=== PATIENT | female | born 1960 | race Caucasian/White ===

== ENCOUNTER 2017-10-22 07:59 | Day surgery (SDC) | payer BC ==
[2017-10-18 09:27] VITALS: BMI 28.9
[~2017-10-22 07:59] MED LIST: LACTATED RINGERS 1,000 ML IV SCH; LIDOCAINE 1% 20 ML VIAL (10MG/ML) FOR IV START INTRADERMA PRN
[2017-10-22 08:22] VITALS: RESP 16; TEMP 98.5
[2017-10-22] MEDS ORDERED: PROPOFOL 10 MG/ML 20 ML VIAL IV ONE (09:10)
--- NOTE | 2017-10-22 09:46 | P.PCN ---
Date of Procedure: 10/22/17 Procedure(s) Performed: Procedure: Colonoscopy and biopsy. Preoperative diagnosis: Change in bowel habits. Postoperative diagnosis: 1. Mild diverticulosis with no evidence of acute diverticulitis, strictures, polyps or cancer. 2. Biopsies obtained from the terminal ileum and random colon. Preparation: HalfLytely prep. Sedation: Was provided by anesthesia. Brief clinical history: The patient is a 57-year-old female who is scheduled for this evaluation because of issues with postprandial diarrheic BM for the last 6 months or so. The patient had a colonoscopy around 3 years ago and had polyps removed. No bleeding or other alarm symptoms. Procedure: With the patient on her left lateral decubitus position and after informed consent and adequate sedation, the perianal area was inspected and it did not show any fissures or fistulas. There were no masses felt on digital rectal examination. The Olympus CFQ 160L video colonoscope was then inserted in the rectum in the usual fashion and advanced to the cecum. I intubated the ileocecal valve and examined the terminal ileum. Terminal ileum and colon appeared healthy with no edema, erythema, friability, ulceration, exudation or spontaneous bleeding. No polyps or tumors were seen. There was occasional diverticular orifice seen with no evidence of acute diverticulitis or strictures. I retroflexed the endoscope in the rectum before the endoscope was withdrawn and I also obtained biopsy from the terminal ileum and randomly from the colon. The patient tolerated the procedure well. Plan: The patient was reassured. Discussed possible that dietary intolerances could be playing a role in her symptoms. The possibility of irritable bowel syndrome to be kept in mind. Will await pathology results. She will follow-up with you as planned and I recommended repeat exam in 5 years.
[2017-10-22 10:10] VITALS: BP 162/94; PULSE 60
== END 2017-10-22 10:28 | disposition home or self-care (01) ==
LOC: ORWHC2ENDO 07:59
DX: K57.30 Diverticulosis of large intestine without perforation or abscess without bleeding (principal); Z86.010 Personal history of colon polyps; J45.909 Unspecified asthma, uncomplicated; I10 Essential (primary) hypertension; Z85.3 Personal history of malignant neoplasm of breast; Z79.51 Long term (current) use of inhaled steroids; Z79.899 Other long term (current) drug therapy
CPT/HCPCS: 88305; 45380; J2704

== ENCOUNTER 2018-06-23 07:54 | Emergency (ER) | payer BC ==
[2018-06-23 08:01] VITALS: RESP 18; TEMP 98
[2018-06-23] MEDS ORDERED: ONDANSETRON 4 MG/2 ML VIAL IVP STA (08:17)
[2018-06-23] MEDS ORDERED: MECLIZINE 25 MG TAB PO STA (08:17)
[2018-06-23] MEDS ORDERED: DIAZEPAM 5 MG/ML 2 ML INJ IVP STA (08:17)
[2018-06-23] MEDS ORDERED: ASPIRIN-ACET-CAFF 250-250-65MG 1 EACH TAB PO STA (08:21)
--- NOTE | 2018-06-23 08:27 | ED ---
General Adult HPI - General Chief complaint: Dizziness Stated complaint: dizzy, SOB Time Seen by Provider: 06/23/18 08:00 Source: patient, RN notes reviewed Mode of arrival: wheelchair Limitations: no limitations - History of Present Illness Initial comments: This is a 58-year-old female who presents emergency Department complaining of dizziness. Patient states she had this about 3 weeks ago. Patient states she was treated for sinus infection and it seemed to go away. Patient states she was in bed today when she rolled OUT of bed the whole room started spinning and moving. Patient states that when she moves her head the symptoms worsen. She is also nauseated. Patient states she has a slight frontal headache as well. Patient denies any vomiting at this time. Patient denies any chest pain or palpitations. Patient states she's been having difficulty breathing for quite a while now it's no different today and in fact she has an appointment with pulmonary in the near future. Patient denies any abdominal pain patient denies any calf pain or leg swelling. Patient denies any recent fever chills or cough - Related Data Home Medications Medication Instructions Recorded Confirmed Albuterol Inhaler [Ventolin Hfa 1 - 2 puff INHALATION Q6HR PRN 10/05/17 10/22/17 Inhaler] Hydrochlorothiazide [Hydrodiuril] 25 mg PO DAILY 10/05/17 10/22/17 Qvar 2 puff INHALATION QAM 10/05/17 10/22/17 Tamoxifen 1 tab PO DAILY 10/05/17 10/22/17 Venlafaxine HCl [Effexor] 75 mg PO QAM 10/05/17 10/22/17 Previous Rx's Medication Instructions Recorded Meclizine [Antivert] 25 mg PO TID #20 tab 06/23/18 Allergies Allergy/AdvReac Type Severity Reaction Status Date / Time No Known Allergies Allergy Verified 06/23/18 07:59 Review of Systems ROS Statement: Those systems with pertinent positive or pertinent negative responses have been documented in the HPI. ROS Other: All systems not noted in ROS Statement are negative. Past Medical History Past Medical History: Cancer, Hypertension Additional Past Medical History / Comment(s): states pre-ca anette breasts, History of Any Multi-Drug Resistant Organisms: None Reported Past Surgical History: Ear Surgery Additional Past Surgical History / Comment(s): anette ear sx. anette breast bx Past Anesthesia/Blood Transfusion Reactions: Previous Problems w/ Anesthesia Additional Past Anesthesia/Blood Transfusion Reaction / Comment(s): states takes "a long time to wake up" Past Psychological History: Anxiety Smoking Status: Never smoker Past Alcohol Use History: Occasional Past Drug Use History: None Reported General Exam - General Exam Comments Initial Comments: GENERAL: Patient is well-developed and well-nourished. Patient is nontoxic and well- hydrated and is in mild distress. ENT: Neck is soft and supple. No significant lymphadenopathy is noted. Oropharynx is clear. Moist mucous membranes. Neck has full range of motion without eliciting any pain. EYES: The sclera were anicteric and conjunctiva were pink and moist. Extraocular movements were intact and pupils were equal round and reactive to light. Eyelids were unremarkable. PULMONARY: Unlabored respirations. Good breath sounds bilaterally. No audible rales rhonchi or wheezing was noted. CARDIOVASCULAR: There is a regular rate and rhythm without any murmurs gallops or rubs. ABDOMEN: Soft and nontender with normal bowel sounds. No palpable organomegaly was noted. There is no palpable pulsatile mass. SKIN: Skin is clear with no lesions or rashes and otherwise unremarkable. NEUROLOGIC: Patient is alert and oriented x3. Cranial nerves II through XII are grossly intact. Motor and sensory are also intact. Normal speech, volume and content. Symmetrical smile. Cerebellar function is normal bilaterally with finger to nose MUSCULOSKELETAL: Normal extremities with adequate strength and full range of motion. No lower extremity swelling or edema. No calf tenderness. LYMPHATICS: No significant lymphadenopathy is noted PSYCHIATRIC: Normal psychiatric evaluation. Limitations: no limitations Course Vital Signs 06/23/18 06/23/18 07:59 09:30 Temperature 98.0 F Pulse Rate 72 56 L Respiratory 18 18 Rate Blood Pressure 170/92 159/99 O2 Sat by Pulse 97 100 Oximetry Medical Decision Making - Medical Decision Making EKG shows normal sinus rhythm at 64 bpm SD interval 184 QRS is 80 QT intervals 462 QTC is 476. Patient's EKG shows no ST segment elevation or depression or T wave abnormalities are noted. Chest x-ray showed no acute abnormality. CT of the brain shows no acute abnormality. Patient got Valium and Antivert and was able to ambulate without problem - Lab Data Result diagrams: 06/23/18 08:25 06/23/18 08:25 Lab Results 06/23/18 06/23/18 06/23/18 Range/Units 08:25 08:25 08:25 WBC 6.2 (3.8-10.6) k/uL RBC 4.05 (3.80-5.40) m/uL Hgb 12.3 (11.4-16.0) gm/dL Hct 36.3 (34.0-46.0) % MCV 89.6 (80.0-100.0) fL MCH 30.4 (25.0-35.0) pg MCHC 34.0 (31.0-37.0) g/dL RDW 13.1 (11.5-15.5) % Plt Count 132 L (150-450) k/uL Neutrophils % 69 % Lymphocytes % 23 % Monocytes % 4 % Eosinophils % 2 % Basophils % 0 % Neutrophils # 4.3 (1.3-7.7) k/uL Lymphocytes # 1.4 (1.0-4.8) k/uL Monocytes # 0.3 (0-1.0) k/uL Eosinophils # 0.1 (0-0.7) k/uL Basophils # 0.0 (0-0.2) k/uL PT (9.0-12.0) sec INR (<1.2) APTT (22.0-30.0) sec Sodium 141 (137-145) mmol/L Potassium 4.3 (3.5-5.1) mmol/L Chloride 110 H (98-107) mmol/L Carbon Dioxide 26 (22-30) mmol/L Anion Gap 5 mmol/L BUN 12 (7-17) mg/dL Creatinine 0.77 (0.52-1.04) mg/dL Est GFR (CKD-EPI)AfAm >90 (>60 ml/min/1.73 sqM) Est GFR (CKD-EPI)NonAf 86 (>60 ml/min/1.73 sqM) Glucose 107 H (74-99) mg/dL Calcium 8.8 (8.4-10.2) mg/dL Magnesium 1.9 (1.6-2.3) mg/dL Total Bilirubin 0.6 (0.2-1.3) mg/dL AST 50 H (14-36) U/L ALT 57 H (9-52) U/L Alkaline Phosphatase 64 (38-126) U/L Total Creatine Kinase 94 (30-135) U/L CK-MB (CK-2) 0.8 (0.0-2.4) ng/mL CK-MB (CK-2) Rel Index 0.9 Troponin I <0.012 (0.000-0.034) ng/mL Total Protein 6.3 (6.3-8.2) g/dL Albumin 3.4 L (3.5-5.0) g/dL 06/23/18 Range/Units 08:25 WBC (3.8-10.6) k/uL RBC (3.80-5.40) m/uL Hgb (11.4-16.0) gm/dL Hct (34.0-46.0) % MCV (80.0-100.0) fL MCH (25.0-35.0) pg MCHC (31.0-37.0) g/dL RDW (11.5-15.5) % Plt Count (150-450) k/uL Neutrophils % % Lymphocytes % % Monocytes % % Eosinophils % % Basophils % % Neutrophils # (1.3-7.7) k/uL Lymphocytes # (1.0-4.8) k/uL Monocytes # (0-1.0) k/uL Eosinophils # (0-0.7) k/uL Basophils # (0-0.2) k/uL PT 10.2 (9.0-12.0) sec INR 1.0 (<1.2) APTT 22.7 (22.0-30.0) sec Sodium (137-145) mmol/L Potassium (3.5-5.1) mmol/L Chloride (98-107) mmol/L Carbon Dioxide (22-30) mmol/L Anion Gap mmol/L BUN (7-17) mg/dL Creatinine (0.52-1.04) mg/dL Est GFR (CKD-EPI)AfAm (>60 ml/min/1.73 sqM) Est GFR (CKD-EPI)NonAf (>60 ml/min/1.73 sqM) Glucose (74-99) mg/dL Calcium (8.4-10.2) mg/dL Magnesium (1.6-2.3) mg/dL Total Bilirubin (0.2-1.3) mg/dL AST (14-36) U/L ALT (9-52) U/L Alkaline Phosphatase (38-126) U/L Total Creatine Kinase (30-135) U/L CK-MB (CK-2) (0.0-2.4) ng/mL CK-MB (CK-2) Rel Index Troponin I (0.000-0.034) ng/mL Total Protein (6.3-8.2) g/dL Albumin (3.5-5.0) g/dL Disposition Clinical Impression: Vertigo Disposition: HOME SELF-CARE Condition: Good Instructions: Vertigo (ED) Prescriptions: Meclizine [Antivert] 25 mg PO TID #20 tab Is patient prescribed a controlled substance at d/c from ED?: No Referrals: Alfredo Tate DO [Primary Care Provider] - 1-2 days Time of Disposition: 10:07
[2018-06-23 08:40] LABS: Basophils % (A) 0 %; Eosinophils # (A) 0.1 k/uL (0-0.7); Eosinophils % (A) 2 %; HCT 36.3 % (34.0-46.0); HGB 12.3 gm/dL (11.4-16.0); Lymphocytes # (A) 1.4 k/uL (1.0-4.8); Lymphocytes % (A) 23 %; MCH 30.4 pg (25.0-35.0); MCV 89.6 fL (80.0-100.0); Mean Platelet Volume 7.5; Monocytes # (A) 0.3 k/uL (0-1.0); Monocytes % (A) 4 %; Neutrophils # (A) 4.3 k/uL (1.3-7.7); Neutrophils % (A) 69 %; Platelet Count 132 k/uL (150-450); RBC 4.05 m/uL (3.80-5.40); RDW 13.1 % (11.5-15.5); WBC 6.2 k/uL (3.8-10.6)
[2018-06-23 08:50] LABS: ALT 57 U/L (9-52); AST 50 U/L (14-36); Albumin 3.4 g/dL (3.5-5.0); Alkaline Phosphatase 64 U/L (38-126); Anion Gap 5 mmol/L; Blood Urea Nitrogen 12 mg/dL (7-17); Calcium 8.8 mg/dL (8.4-10.2); Carbon Dioxide 26 mmol/L (22-30); Chloride 110 mmol/L (98-107); Glucose 107 mg/dL (74-99); Magnesium 1.9 mg/dL (1.6-2.3); Potassium 4.3 mmol/L (3.5-5.1); Sodium 141 mmol/L (137-145); Total Bilirubin 0.6 mg/dL (0.2-1.3); Total Protein 6.3 g/dL (6.3-8.2)
[2018-06-23 08:58] LABS: Partial Thromboplastin Time 22.7 sec (22.0-30.0); Prothrombin Time 10.2 sec (9.0-12.0)
[2018-06-23 09:01] LABS: Creatine Kinase 94 U/L (30-135)
--- NOTE | 2018-06-23 09:06 | XR ---
EXAMINATION TYPE: XR chest 2V DATE OF EXAM: 06/23/2018 HISTORY: Chest Pain. REFERENCE: NONE. FINDINGS: The heart is mildly enlarged. The lungs are clear. Pleural space are clear. There is a gent le dextroscoliosis. IMPRESSION: MILD CARDIOMEGALY.
[2018-06-23 09:14] LABS: Creatine Kinase MB 0.8 ng/mL (0.0-2.4); Troponin I <0.012 ng/mL (0.000-0.034)
--- NOTE | 2018-06-23 09:30 | CT ---
EXAMINATION TYPE: CT brain wo con DATE OF EXAM: 06/23/2018 COMPARISON: NONE HISTORY: Dizziness and shortness of breath CT DLP: 1270.4 mGycm Automated exposure control for dose reduction was used. FINDINGS: Central structures are midline. There is no evidence of hydrocephalus. No acute focal lesion, mass ef fect or midline shift is seen. I do not see evidence of intracranial blood. Visualized portions of the paranasal sinuses and mastoids are clear. The bony calvarium is intact. IMPRESSION: NO ACUTE INTRACRANIAL ABNORMALITY.
[2018-06-23 09:31] VITALS: BP 159/99; PULSE 56
== END 2018-06-23 10:34 | disposition home or self-care (01) ==
LOC: EC 07:54
DX: R42 Dizziness and giddiness (principal); R06.02 Shortness of breath; R11.0 Nausea; R51 Headache; F41.9 Anxiety disorder, unspecified; I10 Essential (primary) hypertension; Z85.3 Personal history of malignant neoplasm of breast; Z79.51 Long term (current) use of inhaled steroids; Z79.899 Other long term (current) drug therapy
CPT/HCPCS: 36415; 93005; 80053; 82550; 82553; 83735; 84484; 85025; 85610; 85730; 71046; 70450; 99284; 96374; 96375; J3360; J2405

== ENCOUNTER → 2019-08-26 | Day surgery (SDC) | payer BC ==
[~2019-08-26] MED LIST changes: +ALPRAZolam 0.5 MG TAB PO STA; -LACTATED RINGERS 1,000 ML IV SCH; -LIDOCAINE 1% 20 ML VIAL (10MG/ML) FOR IV START INTRADERMA PRN
[2019-08-26 11:27] VITALS: TEMP 97.5
[2019-08-26 12:28] VITALS: BP 132/86; PULSE 74; RESP 18
--- NOTE | 2019-08-26 12:41 | BMR ---
EXAMINATION TYPE: MR breast biopsy w/vad LEFT, MG diagnostic mammo LT wo CAD DATE OF EXAM: 08/26/2019 COMPARISON: Outside MRI of the bilateral breasts dated 06/12/2019. HISTORY: Nonmass enhancement of the left breast at the 4:00 position on the prior outside MRI of 06/12. Request for MRI guided biopsy. TECHNIQUE: Multiplanar, multisequence images of the brain and brainstem is performed without and with IV contras t, utilizing 7.5 mL intravenous Gadavist . Additional postprocessing imaging is created on [facility] workstation and reviewed during the biopsy. PREPROCEDURAL CONSULTATION: Following a discussion of the risks, benefits, and alternatives of the procedure, informed consent wa s obtained. The patient identified herself by both her name and date and indicated that the lef t breast was the area of concern. Prior to the procedure, an audible timeout was done to verify [facility] nt identification, site and type of procedure. The left breast was marked prior to the procedure. PROCEDURE: The patient was placed on the MRI scanner within the breast coil with mild compression on the right b reast. T1 weighted axial images were obtained before and after administration of IV contrast. The enhancing area of concern was identified. The wikifoliod software program was used to localize the e nhancing area of concern. The patient was taken out of the scanner and the skin was sterilely prepped . 10 mL of buffered 1% lidocaine was injected subcutaneously and then into the deeper tissues. Subse quently, a trochar and sheath were advanced into the breast at the designated depth. The trochar was removed and a plastic stylet was placed into the sheath and the patient was placed back into the scan ner. T1 weighted images were again obtained. The stylet tip was approximately 9mm deep/medial in rela tion to the area of concern. The stylet tip was retracted 9mm. The stylet was removed and the 9-guage vacuum-assisted needle was placed into the sheath. 10 cc of li docaine with epinephrine was injected at the site of biopsy. 10 tissue core specimens were obtained. The biopsy needle was removed and a metallic clip was placed into the biopsy site. T1 weighted fat s aturation images were then obtained demonstrating satisfactory location of the biopsy marking clip. T he patient was then taken out of the scanner and hemostasis was achieved with manual compression. A s terile dressing was applied at the site of biopsy. The patient tolerated the procedure without diffic ulty. Pathology specimens were labeled with patient identifiers and then sent to the pathology department. A post biopsy mammogram demonstrates satisfactory placement of the dumbell-shaped biopsy marker. The patient experienced no complications during the procedure within the expected small postprocedura l hematoma at the site of biopsy. Home-going/follow-up instructions were reviewed with the patient be fore she left the department. IMPRESSION: Status post MRI guided vacuum-assisted core needle biopsy of nonmass enhancement in the l eft breast mass followed by placement of tissue marker. Pathology and an addendum are pending.
== END | disposition home or self-care (01) ==
LOC: RADMRIMAIN 09:32
PROVIDERS: ATTEND Surgery
DX: N60.12 Diffuse cystic mastopathy of left breast (principal)
CPT/HCPCS: 88305; 77065; 19085; C8937; A9585

== ENCOUNTER → 2019-09-25 | Outpatient (CLI) | payer BC ==
[2019-09-25 09:05] VITALS: BP 134/90; PULSE 82; RESP 18; TEMP 98.7
--- NOTE | 2019-09-25 09:54 | P.GSHP ---
History of Present Illness H&P Date: 09/25/19 Chief Complaint: LCIS right breast Cathy is a 59-year-old white female with a diagnosis of right breast lobular carcinoma in situ approximately 6 years ago. She is seen in consultation for DR. Gimenez. She has had bilateral breast biopsies in the past, no lesions of concern were noted in the left breast. She was on tamoxifen for approximately 5 years and indicated this in June 2019. She had a bilateral mammogram performed on . This was felt to be benign BIRADS 2. [place] [address]. On the MRI she was noted to have an area of highly suspicious non-mass enhancement in the 4 o'clock position of the left breast. Maximum extent was 1.6 cm. No evidence of malignancy was seen in the right breast. Postsurgical changes were noted in both breasts. Targeted ultrasound was recommended if not seen by ultrasound MR guided biopsy was recommended. An ultrasound was performed on 112 719. No worrisome solid or cystic masses were identified. She subsequently underwent an MRI guided core biopsy which revealed only fibrocystic changes and no evidence of atypia or malignancy. Patient does not feel anything of concern in her breasts. She did have bilateral breast reductions approximately 5 years ago after the lumpectomy in the left breast. Her MRI biopsy was benign tissue, however this is felt to be discordant. This was reviewed with Dr. Bhatti from radiology. Therefore needle local excisional biopsy is recommended. She did have some discomfort with positioning on the MRI table. No nipple discharge. No history of recent trauma or infection in the breast. Caffeine: 1 cup/day smoke: none alcohol: weekly family history: father: colon cancer maternal grandfather: colon cancer Hormonal History: menarche: 16 , breast fed: none; age at first 23 menopause: 54 BCP: 4 years hormones: none Surgical history: 1. Bilateral ear surgery 2. Bilateral breast reduction 3. Left breast lumpectomy Medical history: 1. Decreased hearing 2. Arthritis Social History: smoke: none alcohol: occasional drugs; none - Constitutional Constitutional: Denies chills, Denies fever - EENT Eyes: denies blurred vision, denies pain Ears: bilateral: decreased hearing, deny: tinnitus Ears, nose, mouth and throat: Denies headache, Denies sore throat - Breasts Breasts: bilateral: as per HPI - Cardiovascular Cardiovascular: Denies chest pain, Denies shortness of breath - Respiratory Respiratory: Denies cough, Denies 7 - Gastrointestinal Gastrointestinal: Denies abdominal pain, Denies diarrhea, Denies nausea, Denies vomiting - Genitourinary (Female) Genitourinary: Denies dysuria, Denies hematuria - Menstruation Menstruation: Reports period spotting, Reports postmenopausal - Musculoskeletal Comment: arthritis Musculoskeletal: Denies myalgias - Integumentary Integumentary: Denies pruritus, Denies rash - Neurological Neurological: Denies numbness, Denies weakness - Psychiatric Psychiatric: Denies anxiety, Denies depression - Endocrine Endocrine: Reports fatigue, Denies weight change - Hematologic/Lymphatic Comment: none - Allergic/Immunologic Allergic/Immunologic: Reports seasonal allergies Past Medical History Past Medical History: Cancer, Hearing Disorder / Deafness, Hypertension Additional Past Medical History / Comment(s): states pre-ca anette breasts, bilateral hearing aids, History of Any Multi-Drug Resistant Organisms: None Reported Past Surgical History: Ear Surgery Additional Past Surgical History / Comment(s): anette ear sx. anette breast bx Past Anesthesia/Blood Transfusion Reactions: Previous Problems w/ Anesthesia Additional Past Anesthesia/Blood Transfusion Reaction / Comment(s): states takes "a long time to wake up" Past Psychological History: Anxiety Smoking Status: Never smoker Past Alcohol Use History: Occasional Past Drug Use History: None Reported Medications and Allergies Home Medications Medication Instructions Recorded Confirmed Type Hydrochlorothiazide [Hydrodiuril] 25 mg PO DAILY 10/05/17 09/25/19 History Venlafaxine HCl [Effexor] 75 mg PO QAM 10/05/17 09/25/19 History ALPRAZolam [Xanax] 0.5 mg PO DAILY PRN 08/26/19 09/25/19 History Allergies Allergy/AdvReac Type Severity Reaction Status Date / Time No Known Allergies Allergy Verified 09/25/19 09:05 Surgical - Exam Vital Signs Temp Pulse Resp BP Pulse Ox 98.7 F 82 18 134/90 97 09/25/19 09:02 09/25/19 09:02 09/25/19 09:02 09/25/19 09:02 09/25/19 09:02 BMI 29 - General well developed, well nourished, no distress - Eyes normal ocular movement - ENT normal pinna, normal nares, no hearing loss, no congestion - Neck no masses, trachea midline - Respiratory normal expansion, normal respiratory effort, clear to auscultation - Cardiovascular Rhythm: regular Heart Sounds: normal: S1, S2 - Abdomen Abdomen: soft, non tender, no guarding, no rigid, no rebound - Integumentary normal turgor well healed bilateral breast scars - Neurologic no disoriented, no combative - Musculoskeletal normal gait, normal posture - Psychiatric oriented to time, oriented to person, oriented to place, speech is normal, memory intact breast exam: BRA 38c/D ptosis: 1 Inspection: Well-healed scars from prior bilateral breast reduction, scarring left breast from prior lumpectomy Right breast: Well-healed scars from prior reduction mammoplasty, fibrofatty tissue with some defects felt to be related to the prior breast reduction, fibro-cystic changes Right axilla: No adenopathy of concern Left breast: Well-healed scars from prior reduction mammoplasty, breast tissue was fibrofatty with some nodularity felt to be related to prior breast reduction, fibro-cystic changes No discrete masses in either breast of concern Left axilla: No adenopathy of concern Results MRI reviewed with radiology Mammogram films reviewed Assessment and Plan Assessment: Impression: 1. Discordant MRI biopsy of the left breast 2. Fibrocystic breast changes 3. Post operative changes in both breast 4. Prior history of right breast lobular carcinoma in situ/no evidence of recurrent disease 5. Bilateral decreased hearing 6. Arthritis 7. Patient has completed course of tamoxifen Plan: 1. needle local excisional biopsy area of concern in the left breast 2. close survellience of bilateral breast changes related to scar and fibrocystic changes CC: Dr. Bebeto Gimenez The risks and benefits of the procedure were discussed with the patient. These include possibility of bleeding/infection/reaction to the anesthetic. The patient understands and wishes to proceed.encounter 40 minutes, > 50% of time spent in planning and counselling. Time with Patient: Greater than 30
--- NOTE | 2019-11-07 12:03 | P.PN ---
Subjective Progress Note Date: 11/07/19 Cathy is a 59-year-old white female with a diagnosis of right breast lobular carcinoma in situ approximately 6 years ago. She is seen in consultation for DR. Gimenez. She has had bilateral breast biopsies in the past, no lesions of concern were noted in the left breast. She was on tamoxifen for approximately 5 years and ended this in June 2019. She had a bilateral mammogram performed on . This was felt to be benign BIRADS 2. The patient then had a bilateral MRI performed on . On the MRI she was noted to have an area of highly suspicious non-mass enhancement in the 4 o'clock position of the left breast. Maximum extent was 1.6 cm. No evidence of malignancy was seen in the right breast. Postsurgical changes were noted in both breasts. Targeted ultrasound was recommended if not seen by ultrasound MR guided biopsy was recommended. An ultrasound was performed on . No worrisome solid or cystic masses were identified. She subsequently underwent an MRI guided core biopsy which revealed only fibrocystic changes and no evidence of atypia or malignancy. Patient does not feel anything of concern in her breasts. She did have bilateral breast reductions approximately 5 years ago after the lumpectomy in the left breast. Her MRI biopsy was benign tissue, however this is felt to be discordant. This was reviewed with Dr. Bhatti from radiology. Therefore needle local excisional biopsy is recommended. She did have some discomfort with positioning on the MRI table. No nipple discharge. No history of recent trauma or infection in the breast. Caffeine: 1 cup/day smoke: none alcohol: weekly family history: father: colon cancer maternal grandfather: colon cancer Hormonal History: menarche: 16 , breast fed: none; age at first 23 menopause: 54 BCP: 4 years hormones: none Surgical history: 1. Bilateral ear surgery 2. Bilateral breast reduction 3. Left breast lumpectomy Medical history: 1. Decreased hearing 2. Arthritis Social History: smoke: none alcohol: occasional drugs; none - Constitutional Constitutional: Denies chills, Denies fever - EENT Eyes: denies blurred vision, denies pain Ears: bilateral: decreased hearing, deny: tinnitus Ears, nose, mouth and throat: Denies headache, Denies sore throat - Breasts Breasts: bilateral: as per HPI - Cardiovascular Cardiovascular: Denies chest pain, Denies shortness of breath - Respiratory Respiratory: Denies cough, Denies 7 - Gastrointestinal Gastrointestinal: Denies abdominal pain, Denies diarrhea, Denies nausea, Denies vomiting - Genitourinary (Female) Genitourinary: Denies dysuria, Denies hematuria - Menstruation Menstruation: Reports period spotting, Reports postmenopausal - Musculoskeletal Comment: arthritis Musculoskeletal: Denies myalgias - Integumentary Integumentary: Denies pruritus, Denies rash - Neurological Neurological: Denies numbness, Denies weakness - Psychiatric Psychiatric: Denies anxiety, Denies depression - Endocrine Endocrine: Reports fatigue, Denies weight change - Hematologic/Lymphatic Comment: none - Allergic/Immunologic Allergic/Immunologic: Reports seasonal allergies Past Medical History Past Medical History: Cancer, Hearing Disorder / Deafness, Hypertension Additional Past Medical History / Comment(s): states pre-ca anette breasts, bilateral hearing aids, History of Any Multi-Drug Resistant Organisms: None Reported Past Surgical History: Ear Surgery Additional Past Surgical History / Comment(s): anette ear sx. anette breast bx Past Anesthesia/Blood Transfusion Reactions: Previous Problems w/ Anesthesia Additional Past Anesthesia/Blood Transfusion Reaction / Comment(s): states takes "a long time to wake up" Past Psychological History: Anxiety Smoking Status: Never smoker Past Alcohol Use History: Occasional Past Drug Use History: None Reported Objective - Vital Signs Vital signs: Vital Signs - Exam BMI 29 - Constitutional General appearance: Present: average body habitus - EENT Eyes: Present: EOMI ENT: Present: hearing grossly normal - Neck Neck: Present: normal ROM - Respiratory Respiratory: bilateral: CTA - Cardiovascular Rhythm: regular Heart sounds: normal: S1, S2 - Gastrointestinal General gastrointestinal: Present: soft - Integumentary Integumentary: Present: normal turgor - Musculoskeletal Musculoskeletal: Present: gait normal - Psychiatric Psychiatric: Present: A&O x's 3, appropriate affect, intact judgment & insight - Additional findings Additional findings: Breast examination: Block: 30 8C/D Ptosis grade 1 Inspection: Well-healed scars from prior bilateral breast reduction, scarring left breast from prior lumpectomy Right breast: Well-healed scars from prior right reduction mammoplasty, fibrofatty tissue with some defects felt to be related to the prior breast reduction, fibrocystic changes Right axilla: No adenopathy of concern Left breast: Well-healed scars from prior reduction mammoplasty, breast tissue fibrofatty was some nodularity felt to be related to prior breast reduction, fibrocystic changes No discrete masses in either breast Left axilla: No adenopathy of concern Assessment and Plan Assessment: Impression: 1. Discordant MRI biopsy of the left breast 2. Fibrocystic breast changes 3. Post operative changes in both breast 4. Prior history of right breast lobular carcinoma in situ/no evidence of recurrent disease 5. Bilateral decreased hearing 6. Arthritis 7. Patient has completed course of tamoxifen Plan: 1. needle local excisional biopsy area of concern in the left breast 2. close survellience of bilateral breast changes related to scar and fib rocystic changes CC: Dr. Bebeto Gimenez The risks and benefits of the procedure were discussed with the patient. These include possibility of bleeding/infection/reaction to the anesthetic. The patient understands and wishes to proceed.encounter
== END ==
LOC: WWCWWP 08:52
PROVIDERS: ATTEND Surgery
DX: Z53.9 Procedure and treatment not carried out, unspecified reason (principal)

== ENCOUNTER → 2019-10-21 | Outpatient (CLI) | payer BC ==
[2019-10-21 07:35] LABS: Basophils # (A) 0.1 k/uL (0-0.2); Basophils % (A) 1 %; Eosinophils # (A) 0.1 k/uL (0-0.7); Eosinophils % (A) 1 %; HCT 42.8 % (34.0-46.0); HGB 14.2 gm/dL (11.4-16.0); Lymphocytes # (A) 1.8 k/uL (1.0-4.8); Lymphocytes % (A) 19 %; MCH 29.5 pg (25.0-35.0); MCHC 33.2 g/dL (31.0-37.0); MCV 88.9 fL (80.0-100.0); Mean Platelet Volume 8.4; Monocytes # (A) 0.5 k/uL (0-1.0); Monocytes % (A) 5 %; Neutrophils # (A) 6.8 k/uL (1.3-7.7); Neutrophils % (A) 73 %; Platelet Count 188 k/uL (150-450); RBC 4.81 m/uL (3.80-5.40); WBC 9.4 k/uL (3.8-10.6)
== END | disposition home or self-care (01) ==
LOC: LABPAT 06:35
PROVIDERS: ATTEND Obstetrics & Gynecology
DX: Z01.818 Encounter for other preprocedural examination (principal); Z01.812 Encounter for preprocedural laboratory examination; I10 Essential (primary) hypertension; N95.0 Postmenopausal bleeding; N84.0 Polyp of corpus uteri
CPT/HCPCS: 36415; 85025; 93005

== ENCOUNTER 2019-10-28 06:16 | Day surgery (SDC) | payer BC ==
[2019-10-21 14:20] VITALS: BMI 28.1
--- NOTE | 2019-10-27 08:38 | HP ---
HISTORY AND PHYSICAL DATE OF PROCEDURE: 10/28/2019 HISTORY: This is a 59-year-old 2, para 2 woman with postmenopausal bleeding. She was found to have an endometrial polyp on endometrial biopsy. She is scheduled for a diagnostic hysteroscopy, D and C and polypectomy. ALLERGIES: NORCO causes itching. MEDICATIONS: 1. Hydrochlorothiazide 25 mg daily. 2. Venlafaxine 75 mg daily. 3. Alprazolam 0.25 mg p.r.n. PAST MEDICAL HISTORY: History of breast carcinoma in situ, anxiety, depression, diverticular disease, hypertension. PAST SURGICAL HISTORY: Breast surgery and colonoscopy. 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 No history of abnormal Pap smears. SOCIAL HISTORY: Negative for tobacco, alcohol, and drug use. She is . REVIEW OF SYSTEMS: Negative except for that described above. Specifically, she denies headaches, visual changes, nausea, vomiting, fever, chills, shortness of breath, chest pain, abdominal pain. PHYSICAL EXAM: Height 5 feet 6 inches, weight 191 pounds. Blood pressure 130/90, pulse 89. In general, this is a pleasant female in no obvious distress. HEENT exam is unremarkable. Breathing is nonlabored and her heart is a regular rate and rhythm. The abdomen is soft and nontender with no rebound, no guarding and no flank pain. On pelvic exam, she has normal female external genitalia for age. On bimanual exam, the uterus is small, freely mobile and in the midline with no adnexal masses palpable. Neurologically, she is grossly intact. Mood and affect are normal. ASSESSMENT: A 59-year-old 2, para 2 woman with postmenopausal bleeding, found to have endometrial polyp on endometrial biopsy. She is scheduled to undergo diagnostic hysteroscopy with D and C and polypectomy. This procedure has been reviewed with the patient in the office setting. Risks include, but are not limited to bleeding, infection, uterine perforation with damage to internal structures. She understands these risks and agrees to proceed. MMODL / IJN: [id number] /
[~2019-10-28 06:16] MED LIST changes: -ALPRAZolam 0.5 MG TAB PO STA; +DEXAMETHASONE SOD PHOSPHATE 10 MG/ML 1 ML VIAL IV ONE; +LACTATED RINGERS 1,000 ML IV SCH; +MIDAZOLAM 2 MG/2 ML VIAL IV PRN; +ONDANSETRON 4 MG/2 ML VIAL IVP ONE; +Pre Op ABX Message 1 EACH MISC MISCELLANE ONE; +SCOPOLAMINE 1.5MG/72HR PATCH TRANSDERM ONE
[2019-10-28] MEDS ORDERED: LIDOCAINE 1% 20 ML VIAL (10MG/ML) FOR IV START INTRADERMA ONE (06:55)
[2019-10-28] MEDS ORDERED: KETOROLAC 30 MG/ML 1 ML VIAL ONE (07:27)
[2019-10-28] MEDS ORDERED: PROPOFOL 10 MG/ML 20 ML VIAL IV ONE (07:27)
[2019-10-28] MEDS ORDERED: SUCCINYLCHOLINE CHLORIDE 100 MG/5 ML SYR IV ONE (07:27)
[2019-10-28] MEDS ORDERED: LIDOCAINE 1% INJ 10MG/ML (20 ML MDV) ONE (07:27)
[2019-10-28] MEDS ORDERED: MIDAZOLAM 2 MG/2 ML VIAL ONE (07:27)
[2019-10-28] MEDS ORDERED: fentaNYL (PF) 50 MCG/ML 2 ML AMP ONE (07:27)
[2019-10-28] MEDS ORDERED: LIDOCAINE 1%-EPI 1:100,000 20 ML VIAL SQ ONE ×2 (07:33)
--- NOTE | 2019-10-28 08:09 | P.OP ---
Date of Procedure: 10/28/19 Preoperative Diagnosis: Postmenopausal bleeding Endometrial polyp Postoperative Diagnosis: Same Procedure(s) Performed: Diagnostic hysteroscopy, D&C and polypectomy Anesthesia: IRENEA Surgeon: Meliza Sheth Estimated Blood Loss (ml): 1 IV fluids (ml): 600 Urine output (ml): 50 Pathology: other (Endometrial curettings and endometrial polyp) Condition: stable Disposition: PACU Indications for Procedure: Postmenopausal bleeding, findings of endometrial polypoid tissue on endometrial biopsy Operative Findings: Severely enlarged uterus on exam under anesthetic. On hysteroscopy intracavitary mass consistent with endometrial polyp emanating from the lower uterine segment anteriorly. Description of Procedure: After the patient and her were met in the preoperative holding area and all questions were answered, she was taken to the operating room where anesthetic was administered without incident. Appropriate timeout procedure was undertaken. The patient was positioned, prepped and draped in the dorsal lithotomy position. Bladder was drained for approximately 50 mL of clear urine. Exam under anesthetic was undertaken and the uterus did feel enlarged, approx imately 8 weeks size and mobile. Speculum was placed in the vagina and the cervix was visualized. Cervix appears atrophic with no lesions. Anterior cervix was grasped with a single-tooth tenaculum and a paracervical block with lidocaine plus epinephrine was placed. The uterus was sounded to 10 cm. The cervix was sequentially dilated with Hegar dilators to allow for passage of the hysteroscope. The hysteroscope was introduced and the polyp was immediately encountered descending somewhat into the cervical canal. The base of the polyp. In the anterior low uterine segment. There did not appear to be any other intracavitary lesions. Hysteroscope was removed and the cervix was further dilated to allow for passage of the instruments. The stone polyp forceps were introduced and a portion of tissue consistent with polyp was removed. The sharp banjo curette was then introduced and the uterine cavity was circumferentially curettaged with a small amount of additional tissue obtained. The hysteroscope was then reintroduced and the polypoid tissue was noted to be removed. No further Luis lesions were noted. All instruments were removed. The cervix was observed and no active bleeding was noted. Instruments removed from the vagina and the patient was awoken from anesthetic without incident. She was transported to recovery area in good condition. All counts reported to me as correct by the operating room staff.
[2019-10-28 08:24] VITALS: TEMP 97.7
[2019-10-28] MEDS: HYDROmorphone 0.5 MG/0.5 ML SYRINGE IVP PRN ×2 (08:45→09:00)
[2019-10-28] MEDS ORDERED: LACTATED RINGERS 1,000 ML IV ONE (08:49)
[2019-10-28 09:13] VITALS: RESP 18
[2019-10-28 09:27] VITALS: BP 136/83; PULSE 85
== END 2019-10-28 09:40 | disposition home or self-care (01) ==
LOC: OR 06:16
PROVIDERS: ATTEND Obstetrics & Gynecology
DX: N84.0 Polyp of corpus uteri (principal); N95.0 Postmenopausal bleeding; I10 Essential (primary) hypertension; H91.90 Unspecified hearing loss, unspecified ear; F41.9 Anxiety disorder, unspecified; E11.9 Type 2 diabetes mellitus without complications; F32.9 Major depressive disorder, single episode, unspecified; K57.90 Diverticulosis of intestine, part unspecified, without perforation or abscess without bleeding; Z88.5 Allergy status to narcotic agent; Z79.899 Other long term (current) drug therapy; Z98.890 Other specified postprocedural states; Z86.000 Personal history of in-situ neoplasm of breast
CPT/HCPCS: 88305; 58558; J2250; J1100; J2405; J2001; J3010; J1885; J0330; J2704; J1170

== ENCOUNTER 2019-11-11 08:48 | Day surgery (SDC) | payer BC ==
[2019-10-30 15:13] VITALS: BMI 28.1
[~2019-11-11 08:48] MED LIST changes: +ALPRAZolam 0.5 MG TAB PO PRN; +HEPARIN SODIUM,PORCINE 5,000 UNIT/ML 1 ML VIAL SQ ONE; +HYDROmorphone 0.5 MG/0.5 ML SYRINGE IVP PRN; +LIDOCAINE 1% (10MG/ML) FOR IV START INTRADERMA PRN
[2019-11-11] MEDS ORDERED: fentaNYL (PF) 50 MCG/ML 2 ML AMP ONE (12:16)
[2019-11-11] MEDS ORDERED: WATER FOR INJECTION, STERILE 10 ML VIAL IV ONE (12:16)
[2019-11-11] MEDS ORDERED: PROPOFOL 10 MG/ML 20 ML VIAL IV ONE (12:16)
[2019-11-11] MEDS ORDERED: LIDOCAINE 1% INJ 10MG/ML (20 ML MDV) ONE (12:16)
[2019-11-11] MEDS ORDERED: ePHEDrine SULFATE/0.9% NACL/PF 50 MG/5 ML SYRINGE IV ONE (12:16)
[2019-11-11] MEDS ORDERED: MIDAZOLAM 2 MG/2 ML VIAL ONE (12:16)
[2019-11-11] MEDS ORDERED: LACTATED RINGERS 1,000 ML IV ONE ×2 (12:18→13:31)
[2019-11-11] MEDS ORDERED: LIDOCAINE 1% INJ 10MG/ML (20 ML MDV) SQ ONE (12:56)
--- NOTE | 2019-11-11 14:11 | P.OP ---
Date of Procedure: 11/11/19 Preoperative Diagnosis: Discordant core biopsy left breast Postoperative Diagnosis: Same Procedure(s) Performed: Localization excisional biopsy lesion left breast Anesthesia: JAMES Surgeon: Augusta Merchant Estimated Blood Loss (ml): 5 IV fluids (ml): 1,000 Pathology: other (breast tissue) Condition: stable Disposition: same day Indications for Procedure: Discordant core biopsy left breast Operative Findings: Fibrofatty breast tissue Description of Procedure: Cathy is a 51-year-old white female status post core biopsy of an area of concern in the left breast. Pathology was felt to be benign but felt to be discordant with radiographic findings. Patient was recommended to undergo needle localization and excisional biopsy. Her core biopsy was done via MRI. This and benefits of the procedure including bleeding and infection reaction to the anesthetic were discussed with the patient and she wished to proceed. The possibility of being unable to localize the clip and or remove it were also discussed with the patient. The patient was taken to the radiology suite in the area of concern was localized. She is brought to the operating room and following induction of general anesthesia the left breast was prepped and draped in a sterile fashion. An incision was made laterally near the wire and carried down to the wire. The wire actually extended to the area of the pectoralis muscle. Wide excision around the needle was performed. Following this the specimen was painted for orientation. Radiograph revealed the clip of concern had been removed. The wound was well irrigated. Surgicel penicillin was placed. Titanium clips were placed. The deep tissues were closed using 3-0 Vicryl suture. The skin was closed using a 4-0 Vicryl suture suture in the subcu testicular tissue followed by a 4-0 Monocryl subcutaneously. A nylon suture was placed as well. Patient tolerated the procedure in stable condition. All instrument and sponge counts were correct at the end of the case.
--- NOTE | 2019-11-11 14:13 | P.DS ---
Providers Attending physician: Augusta Merchant Primary care physician: Alfredo Tate Plan - Discharge Summary Discharge Rx Participant: No New Discharge Prescriptions: No Action Hydrochlorothiazide [Hydrodiuril] 25 mg PO DAILY Venlafaxine HCl [Effexor] 75 mg PO QAM ALPRAZolam [Xanax] 0.5 mg PO DAILY PRN PRN Reason: Anxiety Discharge Medication List Hydrochlorothiazide [Hydrodiuril] 25 mg PO DAILY 10/05/17 [History] Venlafaxine HCl [Effexor] 75 mg PO QAM 10/05/17 [History] ALPRAZolam [Xanax] 0.5 mg PO DAILY PRN 08/26/19 [History] Follow up Appointment(s)/Referral(s): Augusta Merchant MD [STAFF PHYSICIAN] - 1 Week Discharge Disposition: HOME SELF-CARE Plan of Treatment: do not drive today may shower after 48 hours
[2019-11-11 14:21] VITALS: TEMP 96.8
[2019-11-11] MEDS ORDERED: KETOROLAC 30 MG/ML 1 ML VIAL IVP ONE (14:32)
[2019-11-11] MEDS ORDERED: HYDROcodone/APAP 5-325MG 1 EACH TAB PO ONE (15:25)
[2019-11-11 15:28] VITALS: PULSE 92; RESP 20
--- NOTE | 2019-11-11 15:33 | MM ---
EXAMINATION TYPE: MG pre op needle loc LT DATE OF EXAM: 11/11/2019 COMPARISON: NONE CLINICAL HISTORY: Abnormal MRI biopsy results TECHNIQUE: Needle localization with wire placement and surgical excision of area of concern in the left breast. FINDINGS: The procedure of needle localization with wire placement and than surgical excision was explained to the patient. Benefits, alternatives, and risks were discussed. An informed consent was then obtained. A timeout was performed. The shortest pathway for procedure was chosen. Shortest pathway was lateral approach. The overlying skin was prepped and draped in usual sterile fashion. Lidocaine buffered with bicarbonate was used as anesthetic into the skin and subcutaneous tissue up to the level of area of concern. A 7 cm needle was used. It was placed via a lateral approach under mammographic guidance. Subsequent 90 degrees mammogram show the needle to be in satisfactory position relative to the targeted area. At this point, wire was placed and the needle was withdrawn. The wire was fixed to patient's skin. Images were marked for surgeon. Imaging was reviewed with the physician prior to surgery. The patient tolerated the procedure well without any immediate complication. The patient was transferred to presurgical holding. Specimen: Surgical clip and wire within the specimen. IMPRESSION: 1. Successful wire localization and excision left breast core marker. Recommendations: 1. Recommendations are pending pathology results. Pathology Results: Benign LEFT BREAST, NEEDLE LOCALIZATION EXCISION: Benign breast with nodular scar/fibrosis and fibrocystic changes including rare microcalcifications. Recommendation Follow up mammogram of the left breast in [address] [facility]ITAL[facility]
[2019-11-11 15:55] VITALS: BP 130/84
--- NOTE | 2019-11-17 09:33 | MM ---
MG Surgical Specimen LT EXAMINATION TYPE: MG pre op needle loc LT DATE OF EXAM: 11/11/2019 COMPARISON: NONE CLINICAL HISTORY: Abnormal MRI biopsy results TECHNIQUE: Needle localization with wire placement and surgical excision of area of concern in the left breast. FINDINGS: The procedure of needle localization with wire placement and than surgical excision was explained to the patient. Benefits, alternatives, and risks were discussed. An informed consent was then obtained. A timeout was performed. The shortest pathway for procedure was chosen. Shortest pathway was lateral approach. The overlying skin was prepped and draped in usual sterile fashion. Lidocaine buffered with bicarbonate was used as anesthetic into the skin and subcutaneous tissue up to the level of area of concern. A 7 cm needle was used. It was placed via a lateral approach under mammographic guidance. Subsequent 90 degrees mammogram show the needle to be in satisfactory position relative to the targeted area. At this point, wire was placed and the needle was withdrawn. The wire was fixed to patient's skin. Images were marked for surgeon. Imaging was reviewed with the physician prior to surgery. The patient tolerated the procedure well without any immediate complication. The patient was transferred to presurgical holding. Specimen: Surgical clip and wire within the specimen. IMPRESSION: 1. Successful wire localization and excision left breast core marker. Recommendations: 1. Recommendations are pending pathology results. RECOMMENDATION: Follow-up diagnostic mammogram of the left breast in 6 months. KALEN
== END 2019-11-11 16:20 | disposition home or self-care (01) ==
LOC: OR 08:48
PROVIDERS: ATTEND Surgery
DX: N60.12 Diffuse cystic mastopathy of left breast (principal); R92.0 Mammographic microcalcification found on diagnostic imaging of breast; R94.31 Abnormal electrocardiogram [ECG] [EKG]; I10 Essential (primary) hypertension; H91.90 Unspecified hearing loss, unspecified ear; F41.9 Anxiety disorder, unspecified; Z79.899 Other long term (current) drug therapy; Z98.890 Other specified postprocedural states; Z91.89 Other specified personal risk factors, not elsewhere classified; Z85.3 Personal history of malignant neoplasm of breast; Z80.0 Family history of malignant neoplasm of digestive organs; Z78.0 Asymptomatic menopausal state; M19.90 Unspecified osteoarthritis, unspecified site; J30.2 Other seasonal allergic rhinitis; Z97.4 Presence of external hearing-aid; N64.81 Ptosis of breast; K21.9 Gastro-esophageal reflux disease without esophagitis; E66.9 Obesity, unspecified; Z68.30 Body mass index [BMI] 30.0-30.9, adult
CPT/HCPCS: 19125; 88307; 76098; 19281; J2250; J1644; J1100; J2405; J2001; J3010; J1885; J2704

== ENCOUNTER → 2019-11-27 | Outpatient (CLI) | payer BC ==
[2019-11-27 15:50] VITALS: BP 122/86; PULSE 79; RESP 18; TEMP 98.4
--- NOTE | 2019-11-27 16:05 | P.PN ---
Progress Note - Text Progress Note Date: 11/27/19 Cathy is a 59-year-old white female status post needle local excisional biopsy of an area of concern in the left breast on 3320. She had undergone an MRI guided core biopsy which was felt to be discordant. Pathology revealed benign breast with nodular scar/fibrosis and fibrocystic changes. Patient has no complaints following the procedure. Physical exam: Incision: Clean and dry Impression/plan: 1. Benign breast with nodular scar/fibrosis 2. Suture removal 3. Left breast mammogram and physician exam in 6 months CC: DR. Tate
== END | disposition home or self-care (01) ==
LOC: WWCWWP 15:38
PROVIDERS: ATTEND Surgery
DX: Z53.9 Procedure and treatment not carried out, unspecified reason (principal)

== ENCOUNTER → 2023-12-21 | Outpatient (CLI) | payer OTHER ==
--- NOTE | 2023-12-25 13:36 | MM ---
Reason for Exam: Screening (asymptomatic). Patient History: Menarche at age 17. First Full-Term at age 23. Postmenopausal. Breast cancer, left, age 52. 11/11/2019, Lumpectomy on the Left side. 11/11/2019, Benign Core Biopsy on the left side. 08/26/2019, Benign Core Biopsy on the left side. 03/11/2013, Bilateral Malignant Excisional Biopsy. 03/11/2013, Bilateral Benign Excisional Biopsy. 02/18/2013, Malignant Core Biopsy on the right side. Prior Study Comparison: 08/26/2019 Left Diagnostic Mammogram, [facility]. Tissue Density: The breasts are almost entirely fatty. Findings: Analyzed By CAD. Left breast surgical clip. Right breast: There is no suspicious group of microcalcifications or new suspicious mass. Left breast: There is no suspicious group of microcalcifications or new suspicious mass. Overall Assessment: Negative, BI-RAD 1 Management: Screening Mammogram of both breasts in [address] [facility] will attempt to contact patient to return for supplemental views and ultrasound if indicated. Patient should continue monthly self-breast exams. A clinical breast exam by your physician is recommended on an annual basis. This exam should not preclude additional follow-up of suspicious palpable abnormalities. Note on Belkys scores and lifetime risk: 1. A Belkys score greater than 3% is considered moderate risk. If this is the case, consider specialist referral to assess eligibility for a risk reducing agent. 2. If overall lifetime risk for the development of breast cancer is 20% or higher, the patient may qualify for future screening with alternating mammogram and breast MRI. Electronically signed and approved by: Ted Vega DO
== END | disposition home or self-care (01) ==
LOC: RADMAMWWP 07:02
PROVIDERS: ATTEND Family Medicine
DX: Z12.31 Encounter for screening mammogram for malignant neoplasm of breast (principal); Z78.0 Asymptomatic menopausal state
CPT/HCPCS: 77063; 77067

== ENCOUNTER 2025-04-10 13:00 | Day surgery (SDC) | payer OTHER ==
[2025-04-06 14:11] VITALS: BMI 26.1
[2025-04-10] MEDS: IV FLUID CONTINUATION 1,000 ML IV ONE (14:08)
[2025-04-10 14:14] VITALS: TEMP 97.2
[2025-04-10 14:21] LABS: Glucose,Whole Blood 89 mg/dL (70-110)
[2025-04-10] MEDS: LACTATED RINGERS 1,000 ML IV SCH (14:22)
[2025-04-10] MEDS ORDERED: PROPOFOL 10 MG/ML 20 ML VIAL IV ONE (14:59)
--- NOTE | 2025-04-10 15:16 | P.PCN ---
Date of Procedure: 04/10/25 Procedure(s) Performed: BRIEF HISTORY: Patient is a 64-year-old pleasant white female scheduled for an elective colonoscopy as a part of screening for colon cancer and family history of colon cancer. Her father was diagnosed with colon cancer at age 80 and maternal grand mother at age 62 PROCEDURE PERFORMED: Colonoscopy. PREOPERATIVE DIAGNOSIS: Screening for colon cancer and family history of colon cancer. IV sedation per Anesthesia. PROCEDURE: After informed consent was obtained, the patient, was brought into the endoscopy unit. IV sedation was administered by Anesthesia under continuous monitoring. Digital rectal examination was normal. Initially the Olympus CF-160 flexible video colonoscope was then inserted in the rectum, gradually advanced into the cecum without any difficulty. Careful examination was performed as the scope was gradually being withdrawn. Ileocecal valve and the appendiceal orifice were visualized and appeared normal. Prep was excellent. Mucosa of the cecum, ascending colon, transverse colon, descending colon, sigmoid colon, and rectum appeared normal. Scattered sigmoid diverticulosis. Retroflexion was performed in the rectum and no lesions were seen. The patient tolerated the procedure well. IMPRESSION: Normal-appearing colon from rectum to cecum with no evidence of colorectal neoplasia Scattered sigmoid diverticulosis RECOMMENDATIONS: Findings of this examination were discussed with the patient as well as her family.. She was advised to have repeat screening colonoscopy in 5 years because of the family history of colon cancer
[2025-04-10 15:28] VITALS: RESP 16
[2025-04-10 15:37] VITALS: BP 118/79; PULSE 74
== END 2025-04-10 15:53 | disposition home or self-care (01) ==
LOC: ORWHC2ENDO 13:00
PROVIDERS: ATTEND Internal Medicine Gastroenterology
DX: Z12.11 Encounter for screening for malignant neoplasm of colon (principal); Z80.0 Family history of malignant neoplasm of digestive organs; K57.30 Diverticulosis of large intestine without perforation or abscess without bleeding
CPT/HCPCS: 45378